=== PATIENT | female | born 1995 | race Caucasian/White ===

== ENCOUNTER 2018-03-17 00:01 | Emergency (ER) | payer OTHER ==
[~2018-03-17] VITALS: Ht 152.4 cm; Wt 52.2 kg
[~2018-03-17 00:01] MED LIST: BIRTH CONTROL
[2018-03-17 00:45] VITALS: BP 117/62
== END 2018-03-17 00:45 | disposition home or self-care (01) ==
LOC: M.ERS 00:01
DX: S61.217A Laceration without foreign body of left little finger without damage to nail, initial encounter (principal); F17.210 Nicotine dependence, cigarettes, uncomplicated; W26.8XXA Contact with other sharp object(s), not elsewhere classified, initial encounter; Y93.89 Activity, other specified; Y92.89 Other specified places as the place of occurrence of the external cause; Y99.8 Other external cause status